=== PATIENT | male | born 1950 | race Caucasian/White ===

== ENCOUNTER 2017-07-16 16:54 | Emergency (ER) | payer BC ==
[~2017-07-16] VITALS: Ht 170.2 cm; Wt 78.6 kg
[~2017-07-16 16:54] MED LIST: ASPI-496 PO; B1/B1TAB2 PO; BENA10TA2 PO; BENA20TA2 PO; BENA20TA61 PO; CA C1TAB62 PO; CALC-570 PO; CYAN25003 PO; LORA10TA3 PO; MONT10TA6 PO; MULT-208 PO; NAPR-816 PO; OMEP-110 PO; PRAV40TA2 PO; TAMS0.4C2 PO
[2017-07-16] MEDS ORDERED: ACETAMINOPHEN 500 MG TABLET PO ONE (17:30)
[2017-07-16] MEDS ORDERED: IBUPROFEN 200 MG TABLET PO ONE (17:30)
[2017-07-16] MEDS ORDERED: ALBUTEROL/IPRATROPIUM 2.5MG/0.5MG, 3 ML NPPB ONE (17:30)
[2017-07-16] MEDS ORDERED: IBUPROFEN 200 MG TABLET ONE (17:37)
[2017-07-16] MEDS ORDERED: ACETAMINOPHEN 500 MG TABLET ONE (17:37)
[2017-07-16] MEDS ORDERED: ALBUTEROL/IPRATROPIUM 2.5MG/0.5MG, 3 ML ONE (17:40)
[2017-07-16] MEDS ORDERED: SODIUM CHLORIDE 0.9% 1,000ML IVBOLUS ONE (18:00)
[2017-07-16 18:02] LABS: BASOPHILS # (AUTO) 0.02 x10^3/uL (0-0.1); BASOPHILS % (AUTO) 0 % (0-1); EOSINOPHILS # (AUTO) 0.03 x10^3/uL (0-0.4); EOSINOPHILS % (AUTO) 1 % (1-7); LYMPHOCYTES # (AUTO) 0.75 x10^3/uL (1-3.4); LYMPHOCYTES % (AUTO) 13 % (22-44); MD NO; MEAN CORPUSCULAR HEMOGLOBIN 30.9 pg (27.5-34.5); MEAN CORPUSCULAR HGB CONC 34.3 g/dL (33.2-36.2); MEAN CORPUSCULAR VOLUME 90.3 fL (81-97); MONOCYTES # (AUTO) 0.67 x10^3/uL (0.2-0.8); MONOCYTES % (AUTO) 12 % (2-9); NEUTROPHILS # (AUTO) 4.19 x10^3/uL (1.8-6.8); NEUTROPHILS % (AUTO) 74 % (42-75); PLATELET COUNT 219 x10^3/uL (130-400); RED BLOOD COUNT 4.77 x10^6/uL (4.38-5.82); RED CELL DISTRIBUTION WIDTH 13.4 % (9.4-14.8)
[2017-07-16 18:11] LABS: RAPID INFLUENZA A POSITIVE (Negative); RAPID INFLUENZA B Negative (Negative)
[2017-07-16 18:12] LABS: ALANINE AMINOTRANSFERASE 31 U/L (12-78); ANION GAP 9 mmol/L (5-15); CHLORIDE 107 mmol/L (98-107); CREATININE 0.93 mg/dL (0.7-1.3)
[2017-07-16 18:14] LABS: ALKALINE PHOSPHATASE 92 U/L (45-117); BILIRUBIN,TOTAL 0.8 mg/dL (0.2-1.0); TOTAL PROTEIN 7.1 g/dL (6.4-8.2)
[2017-07-16 19:00] VITALS: BP 113/50
[2017-07-16] MEDS ORDERED: SODIUM CHLORIDE FLUSH 10ML SYR IVF ONE (19:00)
== END 2017-07-16 19:02 | disposition home or self-care (01) ==
LOC: ED 18:22
DX: J09.X2 Influenza due to identified novel influenza A virus with other respiratory manifestations (principal); J40 Bronchitis, not specified as acute or chronic; I10 Essential (primary) hypertension; Z95.0 Presence of cardiac pacemaker
CPT/HCPCS: 36415; 71045; 80053; 83605; 84145; 85025; 87040; 87400; 93005; 94640; 96360; 99285; J7030; J7620

== ENCOUNTER 2017-10-14 13:28 | Inpatient (IN) | payer BC, OTHER ==
[~2017-10-14] VITALS: Ht 170.2 cm; Wt 75.5 kg
[2017-10-14] MEDS ORDERED: SODIUM CHLORIDE FLUSH 10ML SYR IVF ONE (14:00)
[2017-10-14] MEDS ORDERED: TEMAZEPAM 15 MG CAPSULE PO PRN (16:00)
[2017-10-14] MEDS ORDERED: MORPHINE SULFATE 4 MG/ML, 1ML IVPush PRN (16:00)
[2017-10-14] MEDS ORDERED: POLYETHYLENE GLYCOL 17 GM PACKET PO PRN (16:00)
[2017-10-14] MEDS ORDERED: ENOXAPARIN 40 MG/0.4 ML SQ SCH (16:00)
[2017-10-14] MEDS ORDERED: hydrALAzine 20 MG/ML, 1ML IVPush PRN (16:00)
[2017-10-14] MEDS ORDERED: ACETAMINOPHEN 325 MG TABLET PO PRN (16:00)
[2017-10-14] MEDS ORDERED: HYDROcodone/APAP 5/325 TABLET PO PRN (16:00)
[2017-10-14] MEDS ORDERED: ONDANSETRON 2MG/ML, 2ML IVPush PRN (16:00)
[2017-10-14 16:29] LABS: FREE T4 (FREE THYROXINE) 1.15 ng/dL (0.76-1.46); THYROID STIMULATING HORMONE 0.594 mIU/L (0.358-3.740)
[2017-10-14 17:45] VITALS: BP 132/63
[2017-10-14 20:38] VITALS: BP 116/58
[2017-10-14] MEDS: TAMSULOSIN 0.4 MG CAP.ER.24H PO SCH (20:55)
[2017-10-14] MEDS ORDERED: PRAVASTATIN 40 MG TABLET PO SCH (21:00)
[2017-10-14] MEDS ORDERED: BENAZEPRIL 20 MG TABLET PO SCH (21:00)
[2017-10-14 22:09] LABS: TROPONIN I < 0.015 ng/mL (0.000-0.045)
[2017-10-15 01:29] VITALS: BP 111/67
[2017-10-15 04:34] LABS: TROPONIN I < 0.015 ng/mL (0.000-0.045)
[2017-10-15 07:21] VITALS: BP 113/70
[2017-10-15] MEDS ORDERED: B12 PO SCH (09:00)
[2017-10-15] MEDS ORDERED: B2 PO SCH (09:00)
[2017-10-15] MEDS ORDERED: TEMPLATE NON-FORMULARY MED. (Ca Carb & Gluc/Mag Ox & Gluc** (Calcium Magnesium Caplet**) 1 PO SCH (09:00)
[2017-10-15] MEDS ORDERED: PROTEASE PO SCH (09:00)
[2017-10-15] MEDS ORDERED: OMEPRAZOLE 20 MG CAPSULE.DR PO SCH (09:00)
[2017-10-15] MEDS ORDERED: MULTIVITAMIN 1 TABLET PO SCH (09:00)
[2017-10-15] MEDS ORDERED: ASPIRIN 81 MG TABLET EC PO SCH (09:00)
[2017-10-15] MEDS ORDERED: [UNRECOGNIZED DRUG - OTHER] PO SCH (09:00)
[2017-10-15] MEDS ORDERED: B1 PO SCH (09:00)
[2017-10-15] MEDS ORDERED: NIACIN PO SCH (09:00)
[2017-10-15] MEDS ORDERED: REGADENOSON 0.4 MG/5 ML SYRINGE ONE (09:47)
[2017-10-15] MEDS: TAMSULOSIN 0.4 MG CAP.ER.24H PO SCH (12:20)
== END 2017-10-15 16:13 | disposition home or self-care (01) | DRG 303 ==
LOC: ED 14:54 → EDIP 14:55 → ED 15:02 → SUATTDRO 15:16 → 5SO 17:05
PROVIDERS: ADMIT Internal Medicine; ATTEND Internal Medicine
DX: I25.110 Atherosclerotic heart disease of native coronary artery with unstable angina pectoris (principal); I48.91 Unspecified atrial fibrillation; E78.5 Hyperlipidemia, unspecified; I10 Essential (primary) hypertension; I25.2 Old myocardial infarction; I44.7 Left bundle-branch block, unspecified; K21.9 Gastro-esophageal reflux disease without esophagitis; N40.0 Benign prostatic hyperplasia without lower urinary tract symptoms; Z79.82 Long term (current) use of aspirin; Z80.3 Family history of malignant neoplasm of breast; Z80.8 Family history of malignant neoplasm of other organs or systems; Z87.891 Personal history of nicotine dependence; Z95.0 Presence of cardiac pacemaker; Z79.899 Other long term (current) drug therapy
CPT/HCPCS: 36415; 78452; 84439; 84443; 84484; 93005; 93017; 93306; 99285; J2785; A9502; C9898

== ENCOUNTER → 2018-01-12 | Outpatient (CLI) | payer BC, MEDICARE ==
[~2018-01-12] MED LIST changes: +OMNIPAQUE 350 MG/ML, 100ML BOTTLE ONE
[2018-01-12 17:16] LABS: CREATININE 0.92 mg/dL (0.7-1.3)
== END | disposition home or self-care (01) ==
LOC: RAD 16:30
PROVIDERS: ATTEND Family Medicine
DX: R10.31 Right lower quadrant pain (principal)
CPT/HCPCS: 36415; 74177; 82565; Q9967

== ENCOUNTER 2018-01-24 14:05 | Emergency (ER) | payer BC ==
[~2018-01-24] VITALS: Ht 170.2 cm; Wt 75.0 kg
[~2018-01-24 14:05] MED LIST changes: -BENA10TA2 PO; +BENA10TA4 PO; -BENA20TA2 PO; +BENA20TA4 PO; -OMNIPAQUE 350 MG/ML, 100ML BOTTLE ONE
[2018-01-24 14:06] VITALS: BP 117/76
[2018-01-24] MEDS ORDERED: FENTANYL PF 100 MCG/2ML ONE (14:27)
[2018-01-24] MEDS ORDERED: ETOMIDATE 20 MG/10 ML ONE (14:27)
[2018-01-24] MEDS ORDERED: SODIUM CHLORIDE FLUSH 10ML SYR IVF ONE (14:30)
[2018-01-24 14:33] LABS: BASOPHILS # (AUTO) 0.03 x10^3/uL (0-0.1); BASOPHILS % (AUTO) 0 % (0-1); EOSINOPHILS # (AUTO) 0.04 x10^3/uL (0-0.4); EOSINOPHILS % (AUTO) 0 % (1-7); LYMPHOCYTES # (AUTO) 1.88 x10^3/uL (1-3.4); LYMPHOCYTES % (AUTO) 22 % (22-44); MD NO; MEAN CORPUSCULAR HEMOGLOBIN 31.8 pg (27.5-34.5); MEAN CORPUSCULAR HGB CONC 34.9 g/dL (33.2-36.2); MEAN CORPUSCULAR VOLUME 91.1 fL (81-97); MEAN PLATELET VOLUME 9.5 fL (7.4-10.4); MONOCYTES # (AUTO) 0.51 x10^3/uL (0.2-0.8); MONOCYTES % (AUTO) 6 % (2-9); NEUTROPHILS # (AUTO) 6.28 x10^3/uL (1.8-6.8); NEUTROPHILS % (AUTO) 72 % (42-75); PLATELET COUNT 241 x10^3/uL (130-400); RED CELL DISTRIBUTION WIDTH 13.1 % (9.4-14.8)
[2018-01-24 14:42] LABS: ALBUMIN 4.4 g/dL (3.4-5.0); ANION GAP 9 mmol/L (5-15); CALCIUM 9.3 mg/dL (8.5-10.1); CHLORIDE 110 mmol/L (98-107)
[2018-01-24] MEDS ORDERED: ONDANSETRON 2MG/ML, 2ML ONE (14:42)
[2018-01-24 14:50] LABS: INTERNATIONAL NORMALIZED RATIO 1.09 (0.93-1.1); PROTHROMBIN TIME 11.3 Seconds (9.6-11.5)
[2018-01-24] MEDS ORDERED: ETOMIDATE 20 MG/10 ML IVPush ONE (15:00)
[2018-01-24] MEDS ORDERED: FENTANYL PF 100 MCG/2ML IVPush ONE (15:00)
[2018-01-24] MEDS ORDERED: ONDANSETRON ODT 4 MG ONE (15:21)
[2018-01-24] MEDS ORDERED: ONDANSETRON ODT 4 MG PO ONE (16:00)
[2018-01-24] MEDS ORDERED: APIXABAN 5 MG TABLET PO ONE (16:00)
[2018-01-24] MEDS ORDERED: APIXABAN 5 MG TABLET ONE (16:13)
[2018-01-24] MEDS ORDERED: METOCLOPRAMIDE 10MG TABLET ONE (16:13)
[2018-01-24] MEDS ORDERED: METOCLOPRAMIDE 10MG TABLET PO ONE (16:30)
== END 2018-01-24 16:28 | disposition home or self-care (01) ==
LOC: ED 16:27
DX: I48.0 Paroxysmal atrial fibrillation (principal); I10 Essential (primary) hypertension; E78.5 Hyperlipidemia, unspecified
CPT/HCPCS: 36415; 71045; 80048; 82040; 85025; 85610; 85730; 92960; 93005; 99152; 99153

== ENCOUNTER 2018-03-20 09:46 | Emergency (ER) | payer BC ==
[~2018-03-20] VITALS: Ht 170.2 cm; Wt 77.5 kg
[2018-03-20] MEDS ORDERED: SODIUM CHLORIDE FLUSH 10ML SYR IVF ONE (10:30)
[2018-03-20] MEDS ORDERED: APIX5TAB PO (10:35)
[2018-03-20] MEDS ORDERED: FLEC100T PO (10:36)
[2018-03-20] MEDS ORDERED: MONT10TA9 PO (10:37)
[2018-03-20] MEDS ORDERED: AZEL137S4 NAS (10:38)
[2018-03-20] MEDS ORDERED: CETI-158 PO (10:38)
[2018-03-20] MEDS ORDERED: IBAN150T PO (10:39)
[2018-03-20] MEDS ORDERED: CHOL200024 PO (10:40)
[2018-03-20] MEDS ORDERED: CA C1TAB62 PO (10:40)
[2018-03-20 11:25] LABS: BASOPHILS # (AUTO) 0.03 x10^3/uL (0-0.1); BASOPHILS % (AUTO) 1 % (0-1); EOSINOPHILS % (AUTO) 2 % (1-7); LYMPHOCYTES % (AUTO) 26 % (22-44); MD NO; MEAN CORPUSCULAR HEMOGLOBIN 31.9 pg (27.5-34.5); MEAN CORPUSCULAR VOLUME 91.3 fL (81-97); MEAN PLATELET VOLUME 8.8 fL (7.4-10.4); MONOCYTES # (AUTO) 0.49 x10^3/uL (0.2-0.8); MONOCYTES % (AUTO) 9 % (2-9); NEUTROPHILS # (AUTO) 3.56 x10^3/uL (1.8-6.8); NEUTROPHILS % (AUTO) 63 % (42-75); PLATELET COUNT 210 x10^3/uL (130-400); RED BLOOD COUNT 4.58 x10^6/uL (4.38-5.82); RED CELL DISTRIBUTION WIDTH 13.3 % (9.4-14.8)
[2018-03-20 11:30] LABS: CHLORIDE 110 mmol/L (98-107)
[2018-03-20 11:37] LABS: ALBUMIN 4.1 g/dL (3.4-5.0); ANION GAP 9 mmol/L (5-15); CALCIUM 8.7 mg/dL (8.5-10.1); CREATININE 0.81 mg/dL (0.7-1.3)
[2018-03-20 11:45] LABS: TROPONIN I < 0.015 ng/mL (0.000-0.045)
== END 2018-03-20 13:13 | disposition home or self-care (01) ==
LOC: ED 12:18
DX: R06.00 Dyspnea, unspecified (principal); I48.91 Unspecified atrial fibrillation; I10 Essential (primary) hypertension; Z95.0 Presence of cardiac pacemaker; E78.5 Hyperlipidemia, unspecified
CPT/HCPCS: 36415; 71046; 80048; 82040; 83880; 84484; 85025; 93005; 99285